=== PATIENT | male | born 2000 | race Caucasian/White ===

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

== ENCOUNTER 2019-08-08 10:30 | Emergency (ER) | payer OTHER, SELFPAY ==
--- NOTE | 2019-08-08 13:31 | RAD REPORT ---
EXAM DESCRIPTION: Lucrecia Stephen And Lisa (2 Views)08/08/2019 1:07 pm CLINICAL HISTORY: Cough COMPARISON: None FINDINGS: The lungs appear clear of acute infiltrate. The heart is normal size IMPRESSION: No acute abnormalities displayed
--- NOTE | 2019-08-08 13:38 | ER ---
Nurse's Notes [facility] Name: Estevan Hinojosa Age: 19 yrs Sex: Male : 2000 Arrival Date: 08/08/2019 Time: 10:35 Bed 19 Private MD: Diagnosis: Fever, unspecified;Cough Presentation: 08/07 10:48 Chief complaint: Patient states: Productive cough, sinus congestion, sore throat, hb fever, and SOB x 2 days. TMAX 101.7. Coronavirus screen: Surgical mask placed on patient. Patient moved to private room, placed in contact and droplet isolation with eye protection until further assessment. Patient reports a cough. Patient reports shortness of breath or difficulty breathing. Patient reports a measured and/or subjective temperature greater than 100.4F. Patient denies travel on a cruise ship or to a country the [facility] currently lists as an affected area. Patient denies contact with known and/or suspected case of COVID-19. Ebola Screen: No symptoms or risks identified at this time. Initial Sepsis Screen: Does the patient meet any 2 criteria? No. Patient's initial sepsis screen is negative. Does the patient have a suspected source of infection? No. Patient's initial sepsis screen is negative. Risk Assessment: Do you want to hurt yourself or someone else? Patient reports no desire to harm self or others. Onset of symptoms was August 07, 2019. 10:48 Method Of Arrival: Ambulatory hb 10:48 Acuity: DUSTIN 4 hb Historical: - Allergies: 10:50 NKA; hb - Home Meds: 10:50 None [Active]; hb - PMHx: 10:50 None; hb - PSHx: 10:50 Ear Tubes; hb - Immunization history:: Adult Immunizations up to date. - Social history:: Smoking status: Patient reports the use of cigarette tobacco products, smokes one pack cigarettes per day. - Family history:: not pertinent. - Hospitalizations: : No recent hospitalization is reported. Screenin:59 Abuse screen: Denies threats or abuse. Nutritional screening: No deficits noted. Tuberculosis screening: No symptoms or risk factors identified. Fall Risk None identified. Assessment: 11:55 General: Appears in no apparent distress. Behavior is calm, cooperative, Reports fever ah for 12-24 hours. Pain: Denies pain. Neuro: Level of Consciousness is awake, alert, Oriented to person, place, time, situation. Cardiovascular: Heart tones S1 S2 present Capillary refill < 3 seconds Patient's skin is warm and dry. Respiratory: Airway is patent Respiratory effort is even, unlabored, Respiratory pattern is regular, symmetrical. Respiratory: Reports shortness of breath on exertion cough that is productive, the patient has mild shortness of breath. GI: No signs and/or symptoms were reported involving the gastrointestinal system. Derm: No signs and/or symptoms reported regarding the dermatologic system. 13:14 Reassessment: Patient and/or family updated on plan of care and expected duration. Pain ah level reassessed. Awaiting on results from labs and radiology. No needs voiced at this time. Vital Signs: 10:48 BP 132 / 78; Pulse 89; Resp 16; Temp 99.2; Pulse Ox 100% ; Weight 72.57 kg; Height 6 hb ft. 2 in. (187.96 cm); Pain 4/10; 10:48 Body Mass Index 20.54 (72.57 kg, 187.96 cm) hb ED Course: 10:35 Patient arrived in ED. fj1 10:50 Triage completed. hb 10:50 Arm band placed on. hb 11:09 Branden Cassidy MD is Attending Physician. rn 11:24 Angela Carrillo RN is Primary Nurse. 13:08 XRAY Chest Pa And Lat (2 Views) In Process Unspecified. EDMS 13:13 No provider procedures requiring assistance completed. Patient did not have IV access ah during this emergency room visit. 13:14 Patient has correct armband on for positive identification. Bed in low position. Call light in reach. Side rails up X 1. Pulse ox on. NIBP on. Administered Medications: No medications were administered Outcome: 13:38 Discharge ordered by . rn 13:45 Discharged to home ambulatory. 13:45 Condition: good 13:45 Discharge instructions given to patient, Instructed on discharge instructions, follow up and referral plans. Demonstrated understanding of instructions, follow-up care. 14:12 Patient left the ED. Addendum: 08/12/2019 10:34 Addendum: Other Attempted to contact pt regarding negative COVID-19 results. Left voice d m5 mail. Signatures: Dispatcher [facility] Karol Norton, ERICH RN [id number] Branden Cassidy MD MD rn Raina Thompson, RN RN Raciel Can fj Angela Carrillo, RN RN ah
--- NOTE | 2019-08-08 13:38 | EDPHYS ---
Physician Documentation [facility] Name: Estevan Hinojosa Age: 19 yrs Sex: Male : 2000 Arrival Date: 08/08/2019 Time: 10:35 Bed 19 Private MD: ED Physician Branden Cassidy HPI: 08/07 11:41 This 19 yrs old Male presents to ER via Ambulatory with complaints of rn Shortness Of Breath. 11:41 The patient has shortness of breath at rest, with light activity. Onset: The rn symptoms/episode began/occurred 2 day(s) ago. Duration: The symptoms are continuous. The patient's shortness of breath is aggravated by exertion, light activity. Severity of symptoms: At their worst the symptoms were mild in the emergency department the symptoms are unchanged. The patient has not experienced similar symptoms in the past. The patient has not recently seen a physician. 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 No chest pain. No known sick contacts. . Historical: - Allergies: 10:50 NKA; hb - Home Meds: 10:50 None [Active]; hb - PMHx: 10:50 None; hb - PSHx: 10:50 Ear Tubes; hb - Immunization history:: Adult Immunizations up to date. - Social history:: Smoking status: Patient reports the use of cigarette tobacco products, smokes one pack cigarettes per day. - Family history:: not pertinent. - Hospitalizations: : No recent hospitalization is reported. ROS: 11:41 Constitutional: + fever Eyes: Negative for injury, pain, redness, and discharge, ENT: rn Negative for injury, pain, and discharge, Cardiovascular: Negative for chest pain, palpitations, and edema, Respiratory: + cough and sob Abdomen/GI: Negative for abdominal pain, nausea, vomiting, diarrhea, and constipation, MS/Extremity: Negative for injury and deformity, Skin: Negative for injury, rash, and discoloration, Neuro: Negative for headache, weakness, numbness, tingling, and seizure. Exam: 11:41 Constitutional: This is a well developed, well nourished patient who is awake, alert, rn and in no acute distress. Head/Face: Normocephalic, atraumatic. Neck: No cervical LAD Cardiovascular: Regular rate and rhythm. No pulse deficits. Respiratory: Speaking full sentences, unlabored, no retractions Skin: Warm, dry MS/ Extremity: Pulses equal, no cyanosis. Neuro: Awake and alert, GCS 15 Vital Signs: 10:48 BP 132 / 78; Pulse 89; Resp 16; Temp 99.2; Pulse Ox 100% ; Weight 72.57 kg; Height 6 hb ft. 2 in. (187.96 cm); Pain 4/10; 10:48 Body Mass Index 20.54 (72.57 kg, 187.96 cm) hb MDM: 11:09 Patient medically screened. rn 13:23 Differential diagnosis: Bronchitis pneumonia, pneumonia, flu, strep, COVID-19, viral rn syndrome. Data reviewed: vital signs, nurses notes, lab test result(s), radiologic studies, and as a result, I will discharge patient. Test interpretation: by ED physician or midlevel provider: plain radiologic studies, CXR neg for acute infiltrate/pneumonia. Counseling: I had a detailed discussion with the patient and/or guardian regarding: the historical points, exam findings, and any diagnostic results supporting the discharge/admit diagnosis, lab results, radiology results, the need for outpatient follow up, to return to the emergency department if symptoms worsen or persist or if there are any questions or concerns that arise at home. Counseling: I had a detailed discussion with the patient and/or guardian regarding: smoking cessation. Special discussion: I discussed with the patient/guardian in detail that at this point there is no indication for admission to the hospital. It is understood, however, that if the symptoms persist or worsen the patient needs to return immediately for re-evaluation. ED course: Neg flu/strep/CXR, stable vitals, either viral syndrome/COVID-19, will dc home after swab with quarantine and return precautions. Advised smoking cessation as well. . 08/07 11:16 Order name: Flu; Complete Time: 12:45 rn 08/07 11:16 Order name: Strep; Complete Time: 12:45 rn 08/07 11:16 Order name: XRAY Chest Pa And Lat (2 Views) rn 08/07 11:49 Order name: Throat Culture EDPA 08/07 13:02 Order name: COVID-19 rn Administered Medications: No medications were administered Disposition: 08/08/19 13:38 Discharged to Home. Impression: Fever, unspecified, Cough. - Condition is Stable. - Discharge Instructions: Fever, Adult, Cough, Adult. - Medication Reconciliation Form, Thank You Letter, Antibiotic Education, Prescription Opioid Use form. - Follow up: Private Physician; When: As needed; Reason: Recheck today's complaints, Re-evaluation by your physician. - Problem is new. - Symptoms have improved. Signatures: Dispatcher [employer] EDMS Branden Cassidy MD MD rn Baxter, Heather, RN RN hb Harris, Amy, RN RN Corrections: (The following items were deleted from the chart) 14:12 13:38 08/08/2019 13:38 Discharged to Home. Impression: Fever, unspecified; Cough. ah Condition is Stable. Forms are Medication Reconciliation Form, Thank You Letter, Antibiotic Education, Prescription Opioid Use. Follow up: Private Physician; When: As needed; Reason: Recheck today's complaints, Re-evaluation by your physician. Problem is new. Symptoms have improved. rn
[2019-08-08 14:23] VITALS: BP 132/78; TEMP 99.2; O2SAT 100
== END 2019-08-08 14:12 | disposition home or self-care (01) ==
LOC: ER 10:30
DX: R50.9 Fever, unspecified (principal); R05 Cough; F17.210 Nicotine dependence, cigarettes, uncomplicated; Z20.828 Contact with and (suspected) exposure to other viral communicable diseases
CPT/HCPCS: 71046; 87070; 87081; 87804; 99283; U0002

== ENCOUNTER 2022-10-11 09:11 | Emergency (ER) | payer SELFPAY ==
--- NOTE | 2022-10-11 09:32 | EDPHYS ---
Physician Documentation [facility] Name: Estevan Hinojosa Age: 22 yrs Sex: Male : 2000 Arrival Date: 10/11/2022 Time: 09:11 Bed 12 Private MD: ED Physician Aquilino Enriquez HPI: 10/11 09:45 This 22 yrs old Male presents to ER via Ambulatory with complaints of Ear Pain - snw Draining. 09:45 The patient presents with drainage, that is purulent. The complaints affect the left snw ear. Onset: The symptoms/episode began/occurred acutely, 1 week(s) ago, and became persistent. Severity of symptoms: At their worst the symptoms were moderate. The patient has experienced similar episodes in the past. The patient has not recently seen a physician. Historical: - Allergies: 09:20 NKA; iw - Home Meds: 09:20 None [Active]; iw - PMHx: 09:20 None; iw ROS: 09:45 Constitutional: Negative for fever, chills, and weight loss, Eyes: Negative for injury, snw pain, redness, and discharge, Neck: Negative for injury, pain, and swelling, Cardiovascular: Negative for chest pain, palpitations, and edema, Respiratory: Negative for shortness of breath, cough, wheezing, and pleuritic chest pain, Abdomen/GI: Negative for abdominal pain, nausea, vomiting, diarrhea, and constipation, Back: Negative for injury and pain, : Negative for injury, bleeding, discharge, and swelling, MS/Extremity: Negative for injury and deformity, Skin: Negative for injury, rash, and discoloration, Neuro: Negative for headache, weakness, numbness, tingling, and seizure, Psych: Negative for depression, anxiety, suicide ideation, homicidal ideation, and hallucinations. 09:45 ENT: Positive for drainage from ear(s), ear pain, of the left ear. Exam: 09:46 Constitutional: This is a well developed, well nourished patient who is awake, alert, snw and in no acute distress. Head/Face: Normocephalic, atraumatic. Eyes: Pupils equal round and reactive to light, extra-ocular motions intact. Lids and lashes normal. Conjunctiva and sclera are non-icteric and not injected. Cornea within normal limits. Periorbital areas with no swelling, redness, or edema. Neck: Trachea midline, no thyromegaly or masses palpated, and no cervical lymphadenopathy. Supple, full range of motion without nuchal rigidity, or vertebral point tenderness. No Meningismus. Chest/axilla: Normal chest wall appearance and motion. Nontender with no deformity. No lesions are appreciated. Cardiovascular: Regular rate and rhythm with a normal S1 and S2. No gallops, murmurs, or rubs. Normal PMI, no JVD. No pulse deficits. Respiratory: Lungs have equal breath sounds bilaterally, clear to auscultation and percussion. No rales, rhonchi or wheezes noted. No increased work of breathing, no retractions or nasal flaring. Abdomen/GI: Soft, non-tender, with normal bowel sounds. No distension or tympany. No guarding or rebound. No evidence of tenderness throughout. Back: No spinal tenderness. No costovertebral tenderness. Full range of motion. Skin: Warm, dry with normal turgor. Normal color with no rashes, no lesions, and no evidence of cellulitis. MS/ Extremity: Pulses equal, no cyanosis. Neurovascular intact. Full, normal range of motion. Neuro: Awake and alert, GCS 15, oriented to person, place, time, and situation. Cranial nerves II-XII grossly intact. Motor strength 5/5 in all extremities. Sensory grossly intact. Cerebellar exam normal. Normal gait. Psych: Awake, alert, with orientation to person, place and time. Behavior, mood, and affect are within normal limits. 09:46 ENT: Ear canal(s): purulent discharge, that is moderate, bilaterally, Nose: is normal, Mouth: is normal, Posterior pharynx: no acute changes, Voice: is normal. Vital Signs: 09:19 BP 149 / 100; Pulse 71; Resp 16; Temp 98.9; Pulse Ox 100% on R/A; Weight 81.65 kg (R); iw 10:00 BP 140 / 89; Pulse 89; Resp 16; Temp 98.1; Pulse Ox 100% on R/A; iw MDM: 09:25 Patient medically screened. snw 09:47 Differential diagnosis: otitis externa. Data reviewed: vital signs, nurses notes. I snw considered the following discharge prescriptions or medication management in the emergency department Medications were administered in the Emergency Department. See MAR. Counseling: I had a detailed discussion with the patient and/or guardian regarding: the historical points, exam findings, and any diagnostic results supporting the discharge/admit diagnosis, the presence of at least one elevated blood pressure reading (>120/80) during this emergency department visit, the need for outpatient follow up, for definitive care, to return to the emergency department if symptoms worsen or persist or if there are any questions or concerns that arise at home. Special discussion: I have referred the patient to see his PCP for further evaluation of high blood pressure. Based on the history and exam findings, there is no indication for further emergent testing or inpatient evaluation. I discussed with the patient/guardian the need to see the ENT specialist for further evaluation of the symptoms. Administered Medications: No medications were administered Disposition Summary: 10/11/22 09:32 Discharge Ordered Location: Home snw Condition: Stable snw Diagnosis - Unspecified otitis externa, left ear snw - Unspecified otitis externa, right ear snw Followup: snw - With: Emergency Department - When: As needed - Reason: Worsening of condition Followup: snw - With: Ro Santiago MD - When: 1 week - Reason: Recheck today's complaints, Continuance of care Discharge Instructions: - Discharge Summary Sheet snw - Ear Drops, Adult snw - Otitis Externa snw Forms: - Work release form snw - Medication Reconciliation Form snw - Thank You Letter snw - Antibiotic Education snw - Prescription Opioid Use snw - Patient Portal Instructions snw Prescriptions: - Cortisporin-TC 3.3-3-10-0.5 mg/mL Otic drops,suspension - instill 4 drops by OTIC route every 6 hours; 1 Unspecified; Refills: 0, Product snw Selection Permitted - Zyrtec 10 mg Oral Tablet - take 1 tablet by ORAL route once daily As needed; 20 tablet; Refills: 0, snw Product Selection Permitted - Tramadol 50 mg Oral Tablet - take 1 tablet by ORAL route every 8 hours as needed; 12 tablet; Refills: 0, snw Product Selection Permitted - Pepcid 20 mg Oral Tablet - take 1 tablet by ORAL route once daily; 20 tablet; Refills: 0, Product snw Selection Permitted Signatures: Dulce Harper FNP-C VENDING MACHINE F[employer]ER-Tadw Rosibel Santoro, RN RN iw
--- NOTE | 2022-10-11 09:32 | ER ---
Nurse's Notes [facility] Name: Estevan Hinojosa Age: 22 yrs Sex: Male : 2000 Arrival Date: 10/11/2022 Time: 09:11 Bed 12 Private MD: Diagnosis: Unspecified otitis externa, left ear;Unspecified otitis externa, right ear Presentation: 10/11 09:19 Chief complaint: Patient states: left ear pain and drainage X 1 week, he has a lot of iw ear issues and the pain usually goes away by now. Coronavirus screen: At this time, the client does not indicate any symptoms associated with coronavirus-19. Ebola Screen: Patient negative for fever greater than or equal to 101.5 degrees Fahrenheit, and additional compatible Ebola Virus Disease symptoms Patient denies exposure to infectious person. Patient denies travel to an Ebola-affected area in the 21 days before illness onset. No symptoms or risks identified at this time. Initial Sepsis Screen: Does the patient meet any 2 criteria? No. Patient's initial sepsis screen is negative. Does the patient have a suspected source of infection? No. Patient's initial sepsis screen is negative. Risk Assessment: Do you want to hurt yourself or someone else? Patient reports no desire to harm self or others. Onset of symptoms was October 04, 2022. 09:19 Acuity: DUSTIN 4 iw 09:19 Method Of Arrival: Ambulatory iw Triage Assessment: 09:30 General: Appears in no apparent distress. Behavior is calm, cooperative. iw Historical: - Allergies: 09:20 NKA; iw - Home Meds: 09:20 None [Active]; iw - PMHx: 09:20 None; iw Screenin:00 [facility] ED Fall Risk Assessment (Adult) History of falling in the last 3 months, iw including since admission. Abuse screen: Denies threats or abuse. Denies injuries from another. Nutritional screening: No deficits noted. Tuberculosis screening: No symptoms or risk factors identified. Assessment: 09:30 General: Appears in no apparent distress. Behavior is calm, cooperative. Pain: iw Complains of pain in left ear. Neuro: Level of Consciousness is awake, alert, obeys commands, Oriented to person, place, time, situation, Moves all extremities. Cardiovascular: Patient's skin is warm and dry. Respiratory: Respiratory effort is even, unlabored, Respiratory pattern is regular. EENT: Reports pain in left ear. Derm: Skin is intact, is healthy with good turgor. Vital Signs: 09:19 BP 149 / 100; Pulse 71; Resp 16; Temp 98.9; Pulse Ox 100% on R/A; Weight 81.65 kg (R); iw 10:00 BP 140 / 89; Pulse 89; Resp 16; Temp 98.1; Pulse Ox 100% on R/A; iw ED Course: 09:14 Patient arrived in ED. mg5 09:20 Triage completed. iw 09:21 Arm band placed on. iw 09:24 Dulce Harper FNP-C is PHCP. snw 09:24 Aquilino Enriquez MD is Attending Physician. snw 09:30 Patient has correct armband on for positive identification. iw 09:31 Rosibel Santoro RN is Primary Nurse. iw 09:31 Ro Santiago MD is Referral Physician. snw 10:22 No provider procedures requiring assistance completed. Patient did not have IV access iw during this emergency room visit. Administered Medications: No medications were administered Medication: 10:20 VIS not applicable for this client. iw Outcome: 09:32 Discharge ordered by . snw 10:22 Discharged to home ambulatory. iw 10:22 Condition: good 10:22 Discharge instructions given to patient, Instructed on discharge instructions, follow up and referral plans. medication usage, Demonstrated understanding of instructions, follow-up care, medications, Prescriptions given X 3. 10:23 Patient left the ED. iw Signatures: Dulce Harper FNP-C [employer]-Csnw Rosibel Santoro, RN RN iw Carlie Demarco mg5 Corrections: (The following items were deleted from the chart) 09:32 09:19 BP 149 / 100; Pulse 71bpm; Resp 16bpm; Pulse Ox 100% RA; iw iw
[2022-10-11] MEDS ORDERED: HYDROCODONE/APAP 5/325 MG TAB ONE (10:25)
[2022-10-11] MEDS ORDERED: CETIRIZINE HCL 5 MG TABLET ONE (10:25)
[2022-10-11] MEDS ORDERED: FAMOTIDINE 20 MG TAB ONE (10:26)
[2022-10-11 10:27] VITALS: BP 149/100; TEMP 98.9; O2SAT 100
[2022-10-11] MEDS ORDERED: TOBRADEX 0.3-0.1% OPTH SUSP OTIC ONE (10:30)
== END 2022-10-11 10:23 | disposition home or self-care (01) ==
LOC: ER 09:11
DX: H60.93 Unspecified otitis externa, bilateral (principal)